=== PATIENT | female | born 2000 | race Caucasian/White ===

== ENCOUNTER → 2019-10-10 | Outpatient (CLI) | payer BC ==
--- NOTE | 2019-10-10 12:36 | KCIC ---
EXAM: Pelvic sonogram. HISTORY: Breakthrough bleeding. TECHNIQUE: Transabdominal and transvaginal sonographic imaging of the pelvis was performed. COMPARISON: None. FINDINGS: The uterus measures 9.8 x 2.5 x 4.2 cm. The endometrial stripe is thin, measuring less than 2 mm. The ovaries are normal in size and demonstrate normal blood flow. There is no pelvic free fluid. IMPRESSION: 1. Thin endometrial stripe. 2. Otherwise, unremarkable pelvic sonogram. Electronically signed by: Akanksha Mittal MD (10/10/2019 12:33 PM) [facility] [place]
== END | disposition home or self-care (01) ==
LOC: KCIC US 09:13
PROVIDERS: ATTEND Obstetrics & Gynecology
DX: R10.2 Pelvic and perineal pain (principal)
CPT/HCPCS: 76830; 76856